=== PATIENT | female | born 1960 | race Caucasian/White ===

== ENCOUNTER 2021-06-04 10:21 | Emergency (ER) | payer SELFPAY ==
[~2021-06-04] VITALS: Ht 165.1 cm; Wt 81.6 kg
[2021-06-04 11:35] LABS: HEMOGLOBIN 15.1 gm/dl (12.3-15.3); RED BLOOD COUNT 4.92 M/UL (4.00-5.10); WHITE BLOOD COUNT 3.6 K/UL (4.5-11.0)
[2021-06-04 11:55] LABS: BUN/CREATININE RATIO 23 (0-10)
== END 2021-06-04 14:45 | disposition home or self-care (01) ==
LOC: ER1 10:21
PROVIDERS: Emergency Medicine
DX: U07.1 COVID-19 (principal); I10 Essential (primary) hypertension; Z23 Encounter for immunization
CPT/HCPCS: 80053; 85025; 99283; M0243